=== PATIENT | male | born 1990 ===

== ENCOUNTER 2023-11-07 20:07 | Emergency (ER) | payer OTHER, SELFPAY ==
[2023-11-07 20:25] VITALS: BP 158/110; BMI 33.0
[2023-11-07 21:49] LABS: % Basophils 0.2 % (0-2); % Eosinophils 0.1 % (0-6); % Immature Granulocytes 0.3 % (0-0.5); % Lymphocytes 10.6 % (20.5-51.1); % Monocytes 4.4 % (1.7-9.3); % Neutrophils 84.4 % (42.2-75.2); Absolute Monocytes 0.4 10^3/uL (0.1-0.6); Absolute Neutrophils 7.5 10^3/uL (1.4-6.5); Hematocrit 38.4 % (39.0-52.0); Hemoglobin 13.6 g/dL (13.0-18.0); Mean Corp Hgb Conc. 35.4 g/dL (33.0-37.0); Mean Corpuscular Hgb 28.3 pg (27.0-31.0); Mean Corpuscular Volume 79.8 fL (80.0-94.0); Mean Platelet Volume 9.5 fL (7.4-10.4); Nucleated Red Blood Cells % 0 % (-); Platelet Count 239 10^3/uL (130-400); Red Blood Cell Count 4.81 10^6/uL (4.70-6.10); White Blood Cell Count 8.9 10^3/uL (4.8-10.8)
[2023-11-07 22:00] LABS: ALT (SGPT) 26 U/L (0-50); AST (SGOT) 27 U/L (17-59); Albumin 5.1 g/dl (3.5-5.0); Alkaline Phosphatase 71 U/L (38-126); Blood Urea Nitrogen 12 mg/dl (9-20); Calcium 9.8 mg/dl (8.4-10.2); Carbon Dioxide 26 mmol/L (22-30); Chloride 103 mmol/L (98-107); Estimated Creatinine Clearance > 125 ml/min; Glucose 101 mg/dl (70-99); Potassium 4.1 mmol/L (3.5-5.1); Sodium 135 mmol/L (135-145); Total Bilirubin 0.5 mg/dl (0.2-1.3); Total Protein 7.9 g/dl (6.3-8.2); eGFR > 60.00
[2023-11-07 22:11] LABS: Troponin I < 0.012 ng/ml
--- NOTE | 2023-11-07 22:15 | ED.GENMED ---
History of Present Illness
General
Chief Complaint: Chest Pain
Time Seen by Provider: 11/07/23 21:37
Travel History
Have you had any contact with someone who has COVID-19?: No
Do you have any symptoms of coronavirus? Fever > 100 degrees, chills, cough, shortness of breath, sore throat, loss of taste or smell, muscle aches, or headache?: No
History of Present Illness
History of Present Illness:
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 Symptoms did not resolve after several minutes causing him to be concerned.
Upon arrival to the emergency department the symptoms have since resolved fully. Denies any associated palpitations, vision changes, shortness of breath, nausea, or vomiting. Has never had similar symptoms. Non-smoker
Review of Systems
Review of Systems
Allergies reviewed?: Yes
All Other Systems: ROS reviewed and negative except as documented in HPI and ROS
Phy Exam
Physical Exam
Physical Exam:
GEN: Well appearing, NAD, WDWN
HEENT: Oral mucosa moist, no scleral icterus
Cardiac: Regular rate and rhythm, no murmurs
Lung: No respiratory distress, no tachypnea
MSK: No gross deformity or injuries
Skin: Good color, no pallor or jaundice, no rashes
Neuro: AO x3, moves all extremities freely
Psych: Calm, cooperative
Scores
Heart Score for Chest Pain Patients
STEMI patient?: No
History: Slightly or Non-Suspicious
ECG: Normal
Age: </= 45 years
Risk Factors: No Risk Factors
Troponin: </= Normal Limit
Heart Score for Chest Pain Patients: 0
Heart Score Risk: 2.5% MACE over next 6 weeks
Course
Orders/Labs/Results
Orders:
Orders
11/07/23 20:25
Electrocardiogram (*1) Urgent
Reason for Study: Chest Pain
EKG- Treatment ONCE
11/07/23 21:34
Complete Blood Count/With Diff Urgent
Comprehensive Metabolic Panel Urgent
Troponin I Urgent
11/07/23 22:15
CR Chest - 2 Views Urgent
Comment:
Reason For Exam: chest pain
Abnormal Lab Results
11/07/23
21:34
Hct 38.4 L %
(39.0-52.0)
MCV 79.8 L fL
(80.0-94.0)
Absolute Neuts (auto) 7.5 H 10^3/uL
(1.4-6.5)
Absolute Lymphs (auto) 1.0 L 10^3/uL
(1.2-3.4)
Neutrophils % 84.4 H %
(42.2-75.2)
Lymphocytes % 10.6 L %
(20.5-51.1)
Glucose 101 H mg/dl
(70-99)
Albumin 5.1 H g/dl
(3.5-5.0)
11/07/23 21:34
11/07/23 21:34
Vital Signs
Initial and Last Documented VS:
Initial Vital Signs
Temp Pulse Resp BP Pulse Ox
98.2 F 84 16 158/110 100
11/07/23 20:25 11/07/23 20:25 11/07/23 20:25 11/07/23 20:25 11/07/23 20:25
Last Documented Vital Signs
Temp Pulse Resp BP Pulse Ox
98.8 F 78 17 138/103 98
11/07/23 23:23 11/07/23 23:23 11/07/23 23:23 11/07/23 23:23 11/07/23 23:23
MDM/Problems Addressed
MDM/Problems Addressed:
Patient had no further symptoms while in the emergency department. He has no cardiac risk factors and is young, this was a nonexertional episode thus I do not suspect ACS. Doubt pulmonary embolism given normal vital signs and lack of hypoxia.
Comment
Comment:
EKG independently interpreted by me shows normal sinus rhythm at a rate of 98 with an inverted T wave in lead III otherwise no ST changes concerning for ischemia
*Critical Care Note
Total Time (30-74mins, 75-104mins- exclusive of procedures): Not Applicable
ED Attending Note
-
Portions of this chart may have been created with voice recognition software.� Occasional wrong word or��sound alike� substitutions may have occurred due to the inherent limitations of voice recognition software.
Discharge Plan
Departure
Patient Disposition: Home (Routine Discharge)
Date of Disposition: 11/07/23
Time of Disposition: 23:15
Patient with high blood pressure during this ER visit?: No
Discharge Problem:
Atypical chest pain
Instructions: Chest Pain That Is Not Caused by the Heart (DC)
Activity Restrictions/Additional Instructions:
Your testing and EKG as well as chest x-ray are all reassuring. Your blood pressure was elevated in the emergency department, this could be situational or stress related however we should be rechecked by your primary care physician within the next
2 weeks. Any further episodes of pain that are similar to today would warrant reevaluation in the emergency department and potentially a cardiology evaluation
Interventions
Interventions:
*Risk Screen - Suicide Last Done: 11/07/23 20:25
*General Assessment Last Done: 11/07/23 21:43
*Neglect/Abuse Screening Last Done: 11/07/23 20:25
ED- Fall Risk Assessment Last Done: 11/07/23 20:25
*ED COVID-19 Vaccine History Last Done: 11/07/23 20:25
*Nursing Disposition Last Done: 11/07/23 23:40
ED- Cardiac Assessment Last Done: 11/07/23 21:22
Discharge Date and Time
Discharge Date/Time: 11/07/23 23:53
Print Language: TANZANIAN
[2023-11-07 23:23] VITALS: BP 138/103
== END 2023-11-07 23:53 | disposition home or self-care (01) ==
LOC: EMR 20:07
PROVIDERS: Emergency Medicine; EMERGENCY PHYSICIAN Emergency Medicine; FAMILY PHYSICIAN Family Medicine
DX: R07.89 Other chest pain (principal); R42 Dizziness and giddiness
CPT/HCPCS: 99285; 71046; 80053; 84484; 85025; 93005